=== PATIENT | female | born 1940 | race Hispanic/Latino ===

== ENCOUNTER 2020-02-06 05:11 | Day surgery (SDC) | payer MEDICARE ==
[2020-02-06] VITALS (9 sets, daily range): BP systolic 129–151; BP diastolic 44–118
[~2020-02-06] VITALS: Ht 147.3 cm; Wt 80.6 kg
[~2020-02-06 05:11] MED LIST: ACET650T9 PO; ASPI-556 PO; CARV3.12 PO; DORZ10DR19 OU; ERGO500014 PO; FISH1CAP27 PO; GLIP5TAB11 PO; HYDR25TA PO; ISOS30TA6 PO; LATA7.5D OU; METF750T46 PO; NIFE-39 PO; PANT40TA54 PO; PRAV40TA3 PO; TELM40TA8 PO; TRAM50TA4 PO
[2020-02-06 06:33] LABS: BASOPHILS % (AUTO) 0.2 % (0.0-5.0); EOSINOPHILS % (AUTO) 1.2 % (0.0-8.0); LYMPHOCYTES % (AUTO) 36.9 % (21.0-51.0); MEAN CORPUSCULAR HEMOGLOBIN 26.8 pg (27.0-33.0); MEAN CORPUSCULAR HGB CONC 31.7 g/dL (32.0-36.0); MEAN CORPUSCULAR VOLUME 84.5 fL (79-99); MONOCYTES % (AUTO) 8.2 % (3.0-13.0); NEUTROPHILS % (AUTO) 53.1 % (40.0-77.0); PLATELET COUNT (AUTO) 232 K/uL (130-400); RED BLOOD CELL COUNT(AUTO) 4.14 MIL/uL (4.00-5.50); RED CELL DISTRIBUTION WIDTH 13.8 % (11.0-15.5); WHITE BLOOD COUNT (AUTO) 8.2 K/uL (4.8-10.8)
[2020-02-06] MEDS ORDERED: METHYLPREDNISOLONE SOD SUCC 125MG/2ML VIAL ONE (06:38)
[2020-02-06] MEDS ORDERED: DiphenhydrAMINE HCL 50 MG/ML VIAL ONE (06:39)
[2020-02-06] MEDS ORDERED: SODIUM CHLORIDE 0.9% 1000ML 1,000 ML IV ONE (06:39)
[2020-02-06 06:43] LABS: CREATININE 1.6 mg/dL (0.5-1.5); INR 0.97 (0.85-1.15); PARTIAL THROMBOPLASTIN TIME 29.4 SEC (26.3-35.5); PROTHROMBIN TIME 10.5 SEC (9.6-11.6)
[2020-02-06 06:46] LABS: APPEARANCE,URINE Clear (CLEAR); BILIRUBIN,URINE Negative (NEGATIVE); COLOR,URINE Yellow (YELLOW); GLUCOSE, URINE (UA) Negative (NEGATIVE); KETONES,URINE Negative (NEGATIVE); LEUKOCYTE ESTERASE ,URINE Trace (NEGATIVE); NITRATE,URINE Negative (NEGATIVE); OCCULT BLOOD,URINE Negative (NEGATIVE); PROTEIN,URINE POS 1+ mg/dL (NEGATIVE); UROBILINOGEN,URINE 0.2 mg/dL (0.2-1.0)
[2020-02-06] MEDS ORDERED: SODIUM CHLORIDE 0.9% 500ML 500 ML IV SCH (07:00)
[2020-02-06 07:10] LABS: BACTERIA,URINE None Seen /HPF (None Seen); RBC,URINE 0-1 /HPF (0-1); WBC,URINE 0-1 /HPF (0-1)
[2020-02-06] MEDS ORDERED: HEPARIN SODIUM 1000UNIT/ML 10ML VIAL ONE (07:22)
[2020-02-06] MEDS ORDERED: IOHEXOL 350 MG/ML 100ML INFUS..BTL IV ONE (07:23)
[2020-02-06] MEDS ORDERED: IOHEXOL-350 50ML VIAL IV ONE (07:23)
[2020-02-06] MEDS ORDERED: MIDAZOLAM HCL 1 MG/ML 2ML VIAL ONE (07:23)
[2020-02-06] MEDS ORDERED: NITROGLYCERIN 2 MG/VIAL VIAL IV ONE (07:23)
[2020-02-06] MEDS ORDERED: FENTANYL CITRATE PF 50 MCG/1 ML 2ML VIAL ONE (07:23)
[2020-02-06] MEDS ORDERED: LIDOCAINE HCL 2% 20ML ONE (07:24)
[2020-02-06] MEDS ORDERED: SODIUM CHLORIDE 0.9% 1000ML 1,000 ML IV SCH (08:47)
[2020-02-06] MEDS ORDERED: DEXTROSE 50%-WATER 50 ML DISP.SYRIN IV PRN (09:00)
[2020-02-06] MEDS ORDERED: GLUCAGON 1MG KIT 1 MG ML IM PRN (09:00)
== END 2020-02-06 13:08 | disposition home or self-care (01) ==
LOC: DAH 05:11
PROVIDERS: ATTEND Internal Medicine Cardiovascular Disease
DX: R07.9 Chest pain, unspecified (principal); I25.10 Atherosclerotic heart disease of native coronary artery without angina pectoris; I12.9 Hypertensive chronic kidney disease with stage 1 through stage 4 chronic kidney disease, or unspecified chronic kidney disease; E11.22 Type 2 diabetes mellitus with diabetic chronic kidney disease; N18.3 Chronic kidney disease, stage 3 (moderate); E78.5 Hyperlipidemia, unspecified; R06.9 Unspecified abnormalities of breathing
CPT/HCPCS: 36415; 71045; 80048; 81001; 82948; 85025; 85610; 85730; 93005; 93458; A4215; A4216; A4221; A4222; A4223 ×3; A4606; A4663; C1760; C1769; C1894 ×2; J1200; J1644; J2250; J2930; J3010; J3490 ×2; J7030; Q9965; Q9967 ×2; 99156; 99157

== ENCOUNTER 2020-02-20 10:00 | Inpatient (IN) | payer OTHER, MEDICARE ==
[~2020-02-20] VITALS: Ht 152.4 cm; Wt 72.7 kg
[2020-02-20 12:21] LABS: BASOPHILS % (AUTO) 0.3 % (0.0-5.0); EOSINOPHILS % (AUTO) 1.4 % (0.0-8.0); LYMPHOCYTES % (AUTO) 29.9 % (21.0-51.0); MEAN CORPUSCULAR HEMOGLOBIN 27.6 pg (27.0-33.0); MEAN CORPUSCULAR HGB CONC 32.5 g/dL (32.0-36.0); MEAN CORPUSCULAR VOLUME 84.9 fL (79-99); MONOCYTES % (AUTO) 7.9 % (3.0-13.0); PLATELET COUNT (AUTO) 217 K/uL (130-400); RED BLOOD CELL COUNT(AUTO) 3.77 MIL/uL (4.00-5.50); RED CELL DISTRIBUTION WIDTH 13.8 % (11.0-15.5); WHITE BLOOD COUNT (AUTO) 8.9 K/uL (4.8-10.8)
[2020-02-20 12:31] LABS: CREATININE 1.5 mg/dL (0.5-1.5); POTASSIUM 4.1 mmol/L (3.5-5.1)
[2020-02-20 12:35] LABS: INR 0.94 (0.85-1.15); PARTIAL THROMBOPLASTIN TIME 29.3 SEC (26.3-35.5); PROTHROMBIN TIME 10.2 SEC (9.6-11.6)
[2020-02-20 12:40] LABS: HEMOGLOBIN A1C 7.1 % (4.0-6.0)
[2020-02-20 13:16] VITALS: BP 176/65
--- NOTE | 2020-02-21 10:47 | NUR ---
RE: ABNORMAL LABS\ REPORTED ABNORMAL LABS TO ANGIE WALKER RN (BUN 32, CREAT 1.5, HGB 10.4/CREAT 32) NO NEW ORDERS RECEIVED. MAY PROCEED WITH SURGERY.
[2020-02-21] MEDS ORDERED: METF-444 PO (14:03)
[2020-02-24] VITALS (62 sets, daily range): BP systolic 92–171; BP diastolic 45–68
[2020-02-24] MEDS: CEFUROXIME SODIUM 1.5 GM VIAL IVP SCH ×2 (06:00→08:00)
[2020-02-24] MEDS ORDERED: EPINEPHRINE 10 MG in SODIUM CHLORIDE 0.9% 240 ML IV PRN (06:15)
[2020-02-24] MEDS ORDERED: SODIUM CHLORIDE 0.9% 1000ML 1,000 ML IV ONE ×2 (06:15→10:07)
[2020-02-24] MEDS ORDERED: AMINOCAPROIC ACID 15,000 MG in SODIUM CHLORIDE 0.9% 500ML 420 ML IV PRN (06:15)
[2020-02-24] MEDS ORDERED: NOREPINEPHRINE BITARTRATE 8 MG in DEXTROSE 5%-WATER 250 ML IV PRN (06:15)
[2020-02-24] MEDS ORDERED: CEFAZOLIN SODIUM 1 GM VIAL ONE (06:54)
[2020-02-24] MEDS ORDERED: PAPAVERINE HCL 30 MG/ML 2ML VIAL ONE (06:55)
[2020-02-24] MEDS ORDERED: NITROGLYCERIN 50 MG/D5% WATER 1 BOT ONE (06:57)
--- NOTE | 2020-02-24 07:26 | NUR ---
potential for infection: clipped as per orders of dr. lilian alexandre per bayron kong, followed by wiping with que: 2% chlorhexidine gluconate cloth patients pre-op skin prep
[2020-02-24] MEDS ORDERED: AMINOCAPROIC ACID 250 MG/ML 20 ML VIAL IV ONE (07:42)
[2020-02-24] MEDS ORDERED: ESMOLOL HCL 10 MG/ML 10 ML VIAL ONE (07:42)
[2020-02-24] MEDS ORDERED: LIDOCAINE PF 2% 5ML ABBOJECT ONE (07:42)
[2020-02-24] MEDS ORDERED: EPINEPHRINE 1 MG/ML AMPULE ONE (07:42)
[2020-02-24] MEDS ORDERED: NOREPINEPHRINE BITARTRATE 1 MG/1 ML ML IV ONE (07:42)
[2020-02-24] MEDS ORDERED: HEPARIN SODIUM 1000UNIT/ML 10ML VIAL ONE ×2 (07:42→07:45)
[2020-02-24] MEDS ORDERED: PROTAMINE SULFATE 10 MG/ML 25ML VIAL IV ONE (07:42)
[2020-02-24] MEDS ORDERED: PROPOFOL 10 MG/ML 20ML VIAL IV ONE (07:43)
[2020-02-24] MEDS ORDERED: MIDAZOLAM HCL 1 MG/ML 2ML VIAL ONE (07:43)
[2020-02-24] MEDS ORDERED: FENTANYL CITRATE PF 50 MCG/1 ML 20ML VIAL IJ ONE (07:43)
[2020-02-24] MEDS ORDERED: ROCURONIUM 10MG/1ML SYR 10 MG/ML ML ONE (07:43)
[2020-02-24] MEDS ORDERED: KETAMINE 50MG/ML SYRINGE 50 MG/ML DISP.SYRIN IV ONE (07:45)
[2020-02-24] MEDS ORDERED: GLYCOPYRROLATE 1 MG/5 ML SYRINGE ONE (08:49)
[2020-02-24 09:01] LABS: ABG BASE EXCESS -5.1 mmol/L (-2.0-3.0); ABG HCO3 20.2 mmol/L (21.0-28.0); ABG OXYGEN SATURATION 98.8 % (95.0-99.0); ABG PCO2 39 mmHg (32-45)
[2020-02-24] MEDS ORDERED: SODIUM BICARB 50MEQ 50ML VIAL ONE (09:04)
[2020-02-24] MEDS ORDERED: SODIUM BICARB 8.4% 50ML SYRINGE ONE (09:04)
[2020-02-24] MEDS ORDERED: tylenol arthritis PO (09:27)
[2020-02-24] MEDS ORDERED: CEFD300C3 PO (09:27)
[2020-02-24] MEDS ORDERED: LORA10TA7 PO (09:27)
[2020-02-24] MEDS ORDERED: PRAV40TA3 PO (09:27)
[2020-02-24 09:47] LABS: ABG HCO3 22.9 mmol/L (21.0-28.0); ABG OXYGEN SATURATION 98.5 % (95.0-99.0); ABG PCO2 35 mmHg (32-45)
[2020-02-24] MEDS ORDERED: SODIUM CHLORIDE 0.9% 500ML 500 ML IV SCH (09:57)
[2020-02-24] MEDS ORDERED: ACETAMINOPHEN 650 MG SUPPOSITORY RC PRN (10:00)
[2020-02-24] MEDS ORDERED: SODIUM CHLORIDE 0.9% 10 ML VIAL IVP PRN (10:00)
[2020-02-24] MEDS ORDERED: ONDANSETRON HCL 4 MG/2 ML VIAL IV PRN (10:00)
[2020-02-24] MEDS ORDERED: PROPOFOL 1000 MG/100 ML 100 ML IV PRN (10:00)
[2020-02-24] MEDS ORDERED: NOREPINEPHRINE 4MG/NS 250ML 250 ML IV PRN (10:00)
[2020-02-24] MEDS ORDERED: MORPHINE SULFATE 2 MG/ML 1ML SYG IV PRN (10:00)
[2020-02-24] MEDS ORDERED: POTASSIUM PHOS 15 mMOL+NS250ML 250 ML IV PRN (10:00)
[2020-02-24] MEDS ORDERED: AMINOCAPROIC ACID 15,000 MG in SODIUM CHLORIDE 0.9% 250 ML IV SCH (10:00)
[2020-02-24] MEDS ORDERED: GLUCAGON 1MG KIT 1 MG ML IM PRN (10:00)
[2020-02-24] MEDS ORDERED: DEXTROSE 50%-WATER 50 ML DISP.SYRIN IV PRN (10:00)
[2020-02-24] MEDS ORDERED: ALBUMIN (HUMAN) 5% 250 ML IV PRN (10:00)
[2020-02-24] MEDS ORDERED: EPINEPHRINE 10 MG in DEXTROSE 5%-WATER 250 ML IV PRN (10:00)
[2020-02-24] MEDS ORDERED: MORPHINE SULFATE 4 MG/1ML SYG IV PRN (10:00)
[2020-02-24] MEDS ORDERED: ACETAMINOPHEN 325 MG TAB PO PRN (10:00)
[2020-02-24] MEDS ORDERED: SODIUM CHLORIDE 0.9% 1000ML 1,000 ML IV SCH (10:00)
[2020-02-24 10:48] LABS: ABG BASE EXCESS -2.9 mmol/L (-2.0-3.0); ABG HCO3 21.9 mmol/L (21.0-28.0); ABG OXYGEN SATURATION 97.7 % (95.0-99.0); ABG PCO2 38 mmHg (32-45)
[2020-02-24 10:51] LABS: HEMATOCRIT 25.7 % (36-48); MEAN CORPUSCULAR HEMOGLOBIN 27.9 pg (27.0-33.0); MEAN CORPUSCULAR HGB CONC 33.1 g/dL (32.0-36.0); MEAN CORPUSCULAR VOLUME 84.3 fL (79-99); RED BLOOD CELL COUNT(AUTO) 3.05 MIL/uL (4.00-5.50); RED CELL DISTRIBUTION WIDTH 13.9 % (11.0-15.5); WHITE BLOOD COUNT (AUTO) 11.3 K/uL (4.8-10.8)
[2020-02-24 11:04] LABS: INR 1.07 (0.85-1.15); PARTIAL THROMBOPLASTIN TIME 29.8 SEC (26.3-35.5); PROTHROMBIN TIME 11.5 SEC (9.6-11.6)
[2020-02-24 11:05] LABS: CREATININE 1.4 mg/dL (0.5-1.5); MAGNESIUM 1.5 mg/dL (1.80-2.40); PHOSPHORUS 4.3 mg/dL (2.5-4.9); POTASSIUM 3.8 mmol/L (3.5-5.1)
[2020-02-24] MEDS: SODIUM BICARB 50MEQ 50ML VIAL IV PRN ×3 (11:18→15:43)
[2020-02-24] MEDS: POTASSIUM CHLORIDE 20MEQ/100ML 100 ML IV PRN ×2 (11:19→13:55)
[2020-02-24] MEDS: INSULIN REGULAR, HUMAN 3ML 100 UNIT in SODIUM CHLORIDE 0.9% 99 ML IV SCH ×2 (11:20)
[2020-02-24 11:48] LABS: ABG BASE EXCESS 0.8 mmol/L (-2.0-3.0); ABG HCO3 24.9 mmol/L (21.0-28.0); ABG OXYGEN SATURATION 98.1 % (95.0-99.0); ABG PCO2 38 mmHg (32-45)
[2020-02-24] MEDS: MAGNESIUM 2GM PREMIX 50ML 50 ML IV PRN (11:48)
[2020-02-24] MEDS: CALCIUM GLUCONATE 1 GM in SODIUM CHLORIDE 0.9% 50 ML IV PRN (12:01)
[2020-02-24] MEDS: TRAMADOL HCL 50 MG TABLET PO PRN ×2 (13:46→20:10)
[2020-02-24 13:50] LABS: ABG BASE EXCESS -0.7 mmol/L (-2.0-3.0); ABG HCO3 21.1 mmol/L (21.0-28.0); ABG OXYGEN SATURATION 97.8 % (95.0-99.0); ABG PCO2 26 mmHg (32-45)
[2020-02-24] MEDS: DORZOLAMIDE HCL 2% 10ML DROPS OU SCH ×2 (13:50→20:22)
[2020-02-24] MEDS: NITROGLYCERIN 50 MG/D5% WATER 250 BOT IV SCH (14:47)
[2020-02-24] MEDS: CEFAZOLIN SODIUM 1 GM VIAL IV SCH ×2 (15:19→23:49)
[2020-02-24 15:34] LABS: ABG BASE EXCESS -1.4 mmol/L (-2.0-3.0); ABG HCO3 20.7 mmol/L (21.0-28.0); ABG OXYGEN SATURATION 98.1 % (95.0-99.0); ABG PCO2 26 mmHg (32-45)
--- NOTE | 2020-02-24 16:28 | NUR ---
TON PLAN VISITED WITH PATIENT. PATIENT SV CABG IN CVR VENTED. [facility] WILL CONTINUE TO FOLLOW. Addendum: 02/24/20 at 1629 by COMFORT SALAS RN CM Amended: Links added.
[2020-02-24] MEDS: ACETAMINOPHEN 325 MG TAB PO PRN ×2 (17:07→23:50)
[2020-02-24] MEDS: SIMVASTATIN 20 MG TABLET PO SCH (20:09)
[2020-02-24] MEDS: FAMOTIDINE/PF 20 MG/2 ML VIAL IV SCH (20:09)
[2020-02-24] MEDS: LATANOPROST 2.5 ML DROPS OU SCH (20:23)
[2020-02-24 22:16] LABS: MAGNESIUM 2.1 mg/dL (1.80-2.40)
[2020-02-25] VITALS (41 sets, daily range): BP systolic 112–180; BP diastolic 42–69
[2020-02-25] MEDS ORDERED: FENTANYL CITRATE PF 0.05 MG/ML 1,000 MCG in SODIUM CHLORIDE 0.9% 100 ML IVPB SCH (01:15)
[2020-02-25 05:09] LABS: HEMATOCRIT 25.8 % (36-48); MEAN CORPUSCULAR HEMOGLOBIN 27.5 pg (27.0-33.0); MEAN CORPUSCULAR HGB CONC 32.6 g/dL (32.0-36.0); MEAN CORPUSCULAR VOLUME 84.3 fL (79-99); RED BLOOD CELL COUNT(AUTO) 3.06 MIL/uL (4.00-5.50); RED CELL DISTRIBUTION WIDTH 14.5 % (11.0-15.5); WHITE BLOOD COUNT (AUTO) 10.7 K/uL (4.8-10.8)
[2020-02-25] MEDS: CALCIUM GLUCONATE 1 GM in SODIUM CHLORIDE 0.9% 50 ML IV PRN (05:23)
[2020-02-25] MEDS: CEFUROXIME SODIUM 1.5 GM VIAL IVP SCH (05:23)
[2020-02-25] MEDS ORDERED: CALCIUM GLUCONATE 1 GM/10 ML VIAL IV ONE (05:23)
[2020-02-25 05:33] LABS: ABG BASE EXCESS 0.3 mmol/L (-2.0-3.0); ABG HCO3 25.2 mmol/L (21.0-28.0); ABG OXYGEN SATURATION 97.3 % (95.0-99.0); ABG PCO2 42 mmHg (32-45)
[2020-02-25 05:34] LABS: PARTIAL THROMBOPLASTIN TIME 28.5 SEC (26.3-35.5); PROTHROMBIN TIME 10.8 SEC (9.6-11.6)
[2020-02-25 05:45] LABS: CREATININE 1.5 mg/dL (0.5-1.5); PHOSPHORUS 6.2 mg/dL (2.5-4.9); POTASSIUM 3.7 mmol/L (3.5-5.1)
[2020-02-25] MEDS ORDERED: CEFAZOLIN SODIUM 1 GM VIAL ONE (08:28)
[2020-02-25] MEDS: POTASSIUM CHLORIDE 20MEQ/100ML 100 ML IV PRN (08:43)
[2020-02-25] MEDS: CEFAZOLIN SODIUM 1 GM VIAL IV SCH (08:43)
[2020-02-25] MEDS: FUROSEMIDE 10 MG/ML 2ML VIAL IV SCH ×2 (08:44→19:52)
[2020-02-25] MEDS: FAMOTIDINE/PF 20 MG/2 ML VIAL IV SCH ×2 (08:44→19:52)
[2020-02-25] MEDS: DORZOLAMIDE HCL 2% 10ML DROPS OU SCH ×3 (08:45→19:54)
[2020-02-25] MEDS: LORATADINE 10 MG TABLET PO SCH (08:45)
[2020-02-25] MEDS: ASPIRIN 325MG EC TAB 325 MG TABLET.DR PO SCH (08:46)
[2020-02-25] MEDS: TRAMADOL HCL 50 MG TABLET PO PRN ×2 (08:46→22:32)
[2020-02-25] MEDS: ACETAMINOPHEN 325 MG TAB PO PRN (12:57)
--- NOTE | 2020-02-25 15:05 | NUR ---
TON ORTIZ VISITED WITH PATIENT. SAID SHE JUST GOT TWO PAIN PILLS AND MAKING HER TIRED. SHE ONLY TAKES ONE AT HOME. SAID WANTS TO GO TO [facility]. TOLD HER WE WILL LET KNOW AND SEE WHAT HE ORDERS. Addendum: 02/25/20 at 1506 by COMFORT SALAS RN CM Amended: Links added.
[2020-02-25] MEDS: NITROGLYCERIN 50 MG/D5% WATER 250 BOT IV SCH (16:39)
[2020-02-25] MEDS: INSULIN REGULAR, HUMAN 3ML 100 UNIT in SODIUM CHLORIDE 0.9% 99 ML IV SCH ×2 (18:59)
[2020-02-25] MEDS: SIMVASTATIN 20 MG TABLET PO SCH (19:52)
[2020-02-25] MEDS: LATANOPROST 2.5 ML DROPS OU SCH (19:54)
[2020-02-26] VITALS (17 sets, daily range): BP systolic 118–180; BP diastolic 36–86
[2020-02-26 00:50] LABS: MAGNESIUM 1.5 mg/dL (1.80-2.40); POTASSIUM 3.7 mmol/L (3.5-5.1)
[2020-02-26] MEDS: MAGNESIUM 2GM PREMIX 50ML 50 ML IV PRN (01:05)
[2020-02-26] MEDS ORDERED: CALCIUM GLUCONATE 1 GM/10 ML VIAL IV ONE (03:21)
[2020-02-26] MEDS ORDERED: SODIUM CHLORIDE 0.9% 100 ML IV ONE (03:27)
[2020-02-26] MEDS: POTASSIUM CHLORIDE 20MEQ/100ML 100 ML IV PRN (04:14)
[2020-02-26 06:50] LABS: HEMATOCRIT 24.7 % (36-48); MEAN CORPUSCULAR HEMOGLOBIN 27.2 pg (27.0-33.0); MEAN CORPUSCULAR VOLUME 85.2 fL (79-99); RED BLOOD CELL COUNT(AUTO) 2.9 MIL/uL (4.00-5.50); RED CELL DISTRIBUTION WIDTH 14.7 % (11.0-15.5); WHITE BLOOD COUNT (AUTO) 10.7 K/uL (4.8-10.8)
[2020-02-26 07:02] LABS: CREATININE 1.4 mg/dL (0.5-1.5); POTASSIUM 4.2 mmol/L (3.5-5.1)
[2020-02-26] MEDS: FAMOTIDINE/PF 20 MG/2 ML VIAL IV SCH (08:45)
[2020-02-26] MEDS: TRAMADOL HCL 50 MG TABLET PO PRN (08:45)
[2020-02-26] MEDS: FUROSEMIDE 20 MG TABLET PO SCH ×2 (08:46→16:03)
[2020-02-26] MEDS: LORATADINE 10 MG TABLET PO SCH (08:46)
[2020-02-26] MEDS: ASPIRIN 325MG EC TAB 325 MG TABLET.DR PO SCH (08:46)
[2020-02-26] MEDS: CARVEDILOL 3.125 MG TABLET PO SCH ×2 (08:47→19:40)
[2020-02-26] MEDS: LOSARTAN 50 MG TABLET PO SCH (08:47)
[2020-02-26] MEDS: DORZOLAMIDE HCL 2% 10ML DROPS OU SCH ×3 (08:49→19:43)
[2020-02-26] MEDS: FUROSEMIDE 10 MG/ML 2ML VIAL IV SCH (08:50)
--- NOTE | 2020-02-26 14:40 | NUR ---
PT WAS TRANSFERRED TO ROOM 404 VIA CARDIAC CHAIR AFTER REPORT WAS GIVEN TO CINDY BRITTON. PT IN NO APPARENT DISTRESS AND WILL ADVISE FAMILY MEMBER OF PT'S ROOM NUMBER.
--- NOTE | 2020-02-26 14:45 | NUR ---
ARRIVAL TO ROOM 404 PT IS AAOX3 DENIES CP DENIES SOB DENIES NV NO COMPLAINTS. CALL LIGHT WITHIN REACH.
[2020-02-26] MEDS: SIMVASTATIN 20 MG TABLET PO SCH (19:41)
[2020-02-26] MEDS: FAMOTIDINE 20MG TAB 20 MG TAB PO SCH (19:41)
[2020-02-26] MEDS: ACETAMINOPHEN 325 MG TAB PO PRN (19:41)
[2020-02-26] MEDS: LATANOPROST 2.5 ML DROPS OU SCH (19:44)
[2020-02-27] MEDS: TRAMADOL HCL 50 MG TABLET PO PRN ×2 (00:41→14:18)
[2020-02-27 04:26] LABS: HEMATOCRIT 27.1 % (36-48); MEAN CORPUSCULAR HEMOGLOBIN 27.4 pg (27.0-33.0); MEAN CORPUSCULAR HGB CONC 31.7 g/dL (32.0-36.0); MEAN CORPUSCULAR VOLUME 86.3 fL (79-99); RED BLOOD CELL COUNT(AUTO) 3.14 MIL/uL (4.00-5.50); RED CELL DISTRIBUTION WIDTH 14.2 % (11.0-15.5); WHITE BLOOD COUNT (AUTO) 11.9 K/uL (4.8-10.8)
[2020-02-27 04:32] VITALS: BP 146/60
[2020-02-27 04:41] LABS: CREATININE 1.6 mg/dL (0.5-1.5); POTASSIUM 4.2 mmol/L (3.5-5.1)
[2020-02-27] MEDS: GLIPIZIDE 5 MG TABLET PO SCH (06:33)
[2020-02-27] MEDS: METFORMIN HCL 500 MG TAB.SR.24H PO SCH (07:27)
[2020-02-27] MEDS: FAMOTIDINE 20MG TAB 20 MG TAB PO SCH ×2 (07:28→19:32)
[2020-02-27] MEDS: LOSARTAN 50 MG TABLET PO SCH (07:28)
[2020-02-27] MEDS: ASPIRIN 325MG EC TAB 325 MG TABLET.DR PO SCH (07:28)
[2020-02-27] MEDS: FUROSEMIDE 20 MG TABLET PO SCH ×2 (07:28→16:35)
[2020-02-27] MEDS: CARVEDILOL 3.125 MG TABLET PO SCH ×2 (07:28→19:34)
[2020-02-27] MEDS: DORZOLAMIDE HCL 2% 10ML DROPS OU SCH ×3 (07:29→19:34)
[2020-02-27] MEDS: ENOXAPARIN SODIUM 30 MG/0.3 ML SQ SCH (07:29)
[2020-02-27] MEDS: LORATADINE 10 MG TABLET PO SCH (07:29)
--- NOTE | 2020-02-27 08:00 | NUR ---
ASSESSMENT PT IS AAOX3 DENIES CP DENIES SOB DENIES NV NO COMPLAINTS RESTING IN BED, ASSISTED TO CHAIR. STERNAL INCISION IS CLEAN DRY AND INTACT. ENCOUARGED COUGH AND DEEP BREATHING WITH HEART PILLOW SPLINTING ENCOURAGED USE OF IS 10XS Q1HR WHILE AWAKE. CALL LIGHT WITHIN REACH.
[2020-02-27 08:28] VITALS: BP 140/60
--- NOTE | 2020-02-27 09:58 | NUR ---
DC PLAN VISITED WITH PATIENT. PATIENT LIVES WITH SPOUSE. INDEPENDENT ABLE TO PERFORM ADL'S. AVAILABLE [facility]. PROVIDER NOT SURE ON HOW MANY HOURS. PATIENT REQUEST [facility] FOR THERAPY SHE WENT FOR HER KNEES. PATIENT ALSO WOULD LIKE A WHEEL CHAIR AND HOSPITAL BED. EXPLAINED THAT SURGEON TYPICALLY WANTS PATIENT AMBULATING AND DOES NOT ORDER WHEEL CHAIRS. MIGHT NEED TO GO TO PRIMARY FOR DME. EXPRESSED THAT HER PRIMARY TOLD HER TO ASK SURGEON FOR IT. LET NURSE KNOW OF REQUEST. LET [facility] THAT NOW HAS CASE OF REQUEST WELL. JULIO CESAR SIGNED FOR [facility]. Addendum: 02/27/20 at 1006 by COMFORT SALAS RN Amended: Links added.
[2020-02-27 10:52] VITALS: BP 122/57
[2020-02-27 16:00] VITALS: BP 143/58
--- NOTE | 2020-02-27 16:23 | NUR ---
CM NOTE/[facility] JULIO CESAR COMPLETED PRIOR. NEW ORDER FOR [facility] HOSPITAL. CLINICAL PACKET FAXED TO [facility], SPOKE WITH ARMANDO, WILL GET STARTED ON PACKET. PENDING AUTHORIZATION, [facility] TO FOLLOW UP.
[2020-02-27 19:00] VITALS: BP 152/61
[2020-02-27] MEDS ORDERED: DOCUSATE SODIUM 100 MG CAP PO ONE (19:21)
[2020-02-27] MEDS ORDERED: SENNOSIDES 8.6 MG TABLET ONE (19:22)
[2020-02-27] MEDS: SIMVASTATIN 20 MG TABLET PO SCH (19:32)
[2020-02-27] MEDS: ACETAMINOPHEN 325 MG TAB PO PRN (19:33)
[2020-02-27] MEDS: LATANOPROST 2.5 ML DROPS OU SCH (19:34)
[2020-02-27 23:00] VITALS: BP 146/64
[2020-02-28 03:00] VITALS: BP 158/71
[2020-02-28 03:45] LABS: HEMATOCRIT 26.6 % (36-48); MEAN CORPUSCULAR HEMOGLOBIN 27.4 pg (27.0-33.0); MEAN CORPUSCULAR HGB CONC 32.3 g/dL (32.0-36.0); MEAN CORPUSCULAR VOLUME 84.7 fL (79-99); NUCLEATED RED BLOOD CELLS 0.2 % (0.0-0.19); RED BLOOD CELL COUNT(AUTO) 3.14 MIL/uL (4.00-5.50); RED CELL DISTRIBUTION WIDTH 13.9 % (11.0-15.5); WHITE BLOOD COUNT (AUTO) 10.3 K/uL (4.8-10.8)
[2020-02-28] MEDS: TRAMADOL HCL 50 MG TABLET PO PRN ×2 (04:00→16:31)
[2020-02-28 04:03] LABS: CREATININE 1.8 mg/dL (0.5-1.5)
[2020-02-28] MEDS: GLIPIZIDE 5 MG TABLET PO SCH (06:52)
[2020-02-28] MEDS: ASPIRIN 325MG EC TAB 325 MG TABLET.DR PO SCH (08:13)
[2020-02-28] MEDS: FAMOTIDINE 20MG TAB 20 MG TAB PO SCH ×2 (08:13→20:22)
[2020-02-28] MEDS: FUROSEMIDE 20 MG TABLET PO SCH ×2 (08:14→16:30)
[2020-02-28] MEDS: METFORMIN HCL 500 MG TAB.SR.24H PO SCH (08:14)
[2020-02-28] MEDS: LOSARTAN 50 MG TABLET PO SCH (08:14)
[2020-02-28] MEDS: LORATADINE 10 MG TABLET PO SCH (08:14)
[2020-02-28] MEDS: CARVEDILOL 3.125 MG TABLET PO SCH ×2 (08:14→20:22)
[2020-02-28] MEDS: ENOXAPARIN SODIUM 30 MG/0.3 ML SQ SCH (08:15)
--- NOTE | 2020-02-28 08:15 | NUR ---
GIVEN SCHEDULED MEDICATIONS. STATES UNKNOWN DATE OF LAST BOWEL MOVEMENT. WAS GIVEN COLACE AND SENNA LAST NIGHT--NO RESULTS. GIVEN WARM PRUNE JUICE AT THIS TIME. STATES HAS HAD PROBLEMS WITH CONSTIPATION EVERY TIME SHE HAS HAD SURGERY IN THE PAST. WILL CONTINUE TO MONITOR.
[2020-02-28] MEDS: DORZOLAMIDE HCL 2% 10ML DROPS OU SCH ×3 (08:16→20:23)
[2020-02-28 08:31] VITALS: BP 145/74
--- NOTE | 2020-02-28 11:41 | NUR ---
NO RESULTS FROM 1ST PRUNE JUICE..REQUESTING ADDITIONAL PRUNE JUICE...GIVEN.
[2020-02-28 11:53] VITALS: BP 119/51
--- NOTE | 2020-02-28 14:20 | NUR ---
DR. MURILLO ROUNDED , DISMISSAL ONCE ACCEPTED TO [facility].
[2020-02-28 17:49] VITALS: BP 159/63
[2020-02-28 20:00] VITALS: BP 156/62
[2020-02-28] MEDS: SIMVASTATIN 20 MG TABLET PO SCH (20:22)
[2020-02-28] MEDS: LATANOPROST 2.5 ML DROPS OU SCH (20:23)
[2020-02-29] VITALS (7 sets, daily range): BP systolic 130–166; BP diastolic 57–70
[2020-02-29] MEDS: GLIPIZIDE 5 MG TABLET PO SCH (06:32)
[2020-02-29] MEDS: FAMOTIDINE 20MG TAB 20 MG TAB PO SCH ×2 (08:33→21:18)
[2020-02-29] MEDS: LOSARTAN 50 MG TABLET PO SCH (08:33)
[2020-02-29] MEDS: CARVEDILOL 3.125 MG TABLET PO SCH ×2 (08:34→21:19)
[2020-02-29] MEDS: ASPIRIN 325MG EC TAB 325 MG TABLET.DR PO SCH (08:34)
[2020-02-29] MEDS: METFORMIN HCL 500 MG TAB.SR.24H PO SCH (08:35)
[2020-02-29] MEDS: LORATADINE 10 MG TABLET PO SCH (08:35)
[2020-02-29] MEDS: FUROSEMIDE 20 MG TABLET PO SCH (08:35)
[2020-02-29] MEDS: DORZOLAMIDE HCL 2% 10ML DROPS OU SCH ×3 (08:36→21:22)
[2020-02-29] MEDS: ACETAMINOPHEN 325 MG TAB PO PRN (08:36)
[2020-02-29] MEDS: ENOXAPARIN SODIUM 30 MG/0.3 ML SQ SCH (08:38)
[2020-02-29] MEDS: TRAMADOL HCL 50 MG TABLET PO PRN ×2 (11:24→22:38)
[2020-02-29] MEDS: SIMVASTATIN 20 MG TABLET PO SCH (21:18)
[2020-02-29] MEDS: LATANOPROST 2.5 ML DROPS OU SCH (21:22)
[2020-03-01 04:00] VITALS: BP_SYST 149; BP_SYST 164; BP_DIAS 67; BP_DIAS 68
[2020-03-01] MEDS: GLIPIZIDE 5 MG TABLET PO SCH (06:33)
[2020-03-01 07:00] VITALS: BP 144/63
[2020-03-01] MEDS: LOSARTAN 50 MG TABLET PO SCH (08:38)
[2020-03-01] MEDS: ASPIRIN 325MG EC TAB 325 MG TABLET.DR PO SCH (08:43)
[2020-03-01] MEDS: LORATADINE 10 MG TABLET PO SCH (08:43)
[2020-03-01] MEDS: TRAMADOL HCL 50 MG TABLET PO PRN (08:44)
[2020-03-01] MEDS: CARVEDILOL 3.125 MG TABLET PO SCH ×2 (08:45→20:45)
[2020-03-01] MEDS: ENOXAPARIN SODIUM 30 MG/0.3 ML SQ SCH (08:45)
[2020-03-01] MEDS: METFORMIN HCL 500 MG TAB.SR.24H PO SCH (08:47)
[2020-03-01] MEDS: DORZOLAMIDE HCL 2% 10ML DROPS OU SCH ×3 (08:51→20:45)
[2020-03-01] MEDS: FAMOTIDINE 20MG TAB 20 MG TAB PO SCH ×2 (08:52→20:45)
[2020-03-01] MEDS: FUROSEMIDE 20 MG TABLET PO SCH (08:52)
[2020-03-01 11:00] VITALS: BP 164/67
--- NOTE | 2020-03-01 11:47 | NUR ---
WR: Call placed to John KHALIL. He mentions that ins auth is still pending @ this time. Mentions that he will f/u w ins in am. Clinical update faxed to John KHALIL. CM to f/u in am regarding ins auth.
[2020-03-01 13:53] LABS: HEMATOCRIT 25.2 % (36-48); MEAN CORPUSCULAR HEMOGLOBIN 26.8 pg (27.0-33.0); MEAN CORPUSCULAR HGB CONC 31.7 g/dL (32.0-36.0); MEAN CORPUSCULAR VOLUME 84.3 fL (79-99); NUCLEATED RED BLOOD CELLS 0.3 % (0.0-0.19); RED BLOOD CELL COUNT(AUTO) 2.99 MIL/uL (4.00-5.50); RED CELL DISTRIBUTION WIDTH 13.5 % (11.0-15.5); WHITE BLOOD COUNT (AUTO) 7.8 K/uL (4.8-10.8)
[2020-03-01 14:00] LABS: CREATININE 1.6 mg/dL (0.5-1.5); POTASSIUM 4.4 mmol/L (3.5-5.1)
[2020-03-01 15:00] VITALS: BP 148/53
[2020-03-01] MEDS: ACETAMINOPHEN 325 MG TAB PO PRN (18:34)
[2020-03-01 19:49] VITALS: BP 147/53
[2020-03-01] MEDS: LATANOPROST 2.5 ML DROPS OU SCH (20:45)
[2020-03-01] MEDS: SIMVASTATIN 20 MG TABLET PO SCH (20:45)
[2020-03-01 23:33] VITALS: BP 139/61
[2020-03-02 05:08] VITALS: BP 159/57
[2020-03-02] MEDS: GLIPIZIDE 5 MG TABLET PO SCH ×2 (06:16→08:32)
--- NOTE | 2020-03-02 06:48 | NUR ---
PATIENT ALERT AND ORIENTED. SITTING UP IN CHAIR. DENIES SOB. DOES HAVE MILD PAIN TO MIDSTERNAL SITE WITH MOVEMENT. INCISION CHUCK. NO S/S OF INFECTION. INCENTIVE SPIROMETER USED, REACHED 750. CALL LIGHT WITHIN REACH.
--- NOTE | 2020-03-02 08:00 | NUR ---
DR. KENNEDY IN TO SEE PT.FROM HIS STANDPOINT PT. CAN BE TRANSFERRED TO [facility]. WHEN ARRANGEMENTS COMPLETE
[2020-03-02 08:07] VITALS: BP 147/60
[2020-03-02] MEDS: FAMOTIDINE 20MG TAB 20 MG TAB PO SCH ×2 (08:30→21:05)
[2020-03-02] MEDS: CARVEDILOL 3.125 MG TABLET PO SCH ×2 (08:31→21:05)
[2020-03-02] MEDS: METFORMIN HCL 500 MG TAB.SR.24H PO SCH (08:32)
[2020-03-02] MEDS: FUROSEMIDE 20 MG TABLET PO SCH (08:33)
[2020-03-02] MEDS: LOSARTAN 50 MG TABLET PO SCH (08:34)
[2020-03-02] MEDS: ASPIRIN 325MG EC TAB 325 MG TABLET.DR PO SCH (08:34)
[2020-03-02] MEDS: ENOXAPARIN SODIUM 30 MG/0.3 ML SQ SCH (08:36)
[2020-03-02 11:55] VITALS: BP 144/76
--- NOTE | 2020-03-02 15:51 | NUR ---
[facility] [employer] CALLED SAID PATIENT NOT IN NETWORK WITH [facility] NEED TO GO TO [facility]. SPOKE TO PATIENT SAID NOT THEY ARE TO FAR. WANTS SOMETHING IN [place]. SAID TO CALL DAUGHTER. SPOKE TO ARMANDO CONTRERAS SAID ON MONDAY THEY HAD BEEN TOLD THEY WERE IN NETWORK AND TODAY THEY SAID NO. CALLED DAUGHTER PHONE LINES NOT WORKING. TRIED [place], SEPARATE NUMBER, PRIVATE CELL NOT ABLE TO CONNECT. SPOKE TO PATIENT EXPLAINED ISSUE. I SHOWED PICTURES OF THE DIFFERENT FACILITIES IN [place]. SAID OKAY TO ANY BUT [facility]. REFERRAL SENT TO [facility] AND [facility] SINCE NOT SURE WHICH ONE IS IN NETWORK. CM WILL CONTINUE TO FOLLOW. Addendum: 03/02/20 at 1557 by COMFORT SALAS RN CM Amended: Links added.
[2020-03-02 16:48] VITALS: BP 162/67
[2020-03-02] MEDS: LORATADINE 10 MG TABLET PO SCH (17:26)
[2020-03-02] MEDS: DORZOLAMIDE HCL 2% 10ML DROPS OU SCH ×2 (17:28→21:06)
[2020-03-02 19:00] VITALS: BP 190/74
[2020-03-02 21:02] VITALS: BP 154/55
[2020-03-02] MEDS: SIMVASTATIN 20 MG TABLET PO SCH (21:05)
[2020-03-02] MEDS: LATANOPROST 2.5 ML DROPS OU SCH (21:05)
[2020-03-02] MEDS: TRAMADOL HCL 50 MG TABLET PO PRN (21:06)
[2020-03-03] VITALS: BP 154/65
[2020-03-03 04:00] VITALS: BP 154/62
[2020-03-03] MEDS: METFORMIN HCL 500 MG TAB.SR.24H PO SCH (08:00)
[2020-03-03] MEDS: LORATADINE 10 MG TABLET PO SCH (08:05)
[2020-03-03] MEDS: LOSARTAN 50 MG TABLET PO SCH (08:05)
[2020-03-03] MEDS: FUROSEMIDE 20 MG TABLET PO SCH (08:06)
[2020-03-03] MEDS: CARVEDILOL 3.125 MG TABLET PO SCH ×2 (08:06→19:44)
[2020-03-03] MEDS: FAMOTIDINE 20MG TAB 20 MG TAB PO SCH ×2 (08:06→19:44)
[2020-03-03] MEDS: ASPIRIN 325MG EC TAB 325 MG TABLET.DR PO SCH (08:06)
[2020-03-03] MEDS: ENOXAPARIN SODIUM 30 MG/0.3 ML SQ SCH (08:07)
[2020-03-03] MEDS: DORZOLAMIDE HCL 2% 10ML DROPS OU SCH ×3 (08:09→19:45)
[2020-03-03 08:30] VITALS: BP 154/54
[2020-03-03 12:19] VITALS: BP 143/63
--- NOTE | 2020-03-03 12:19 | NUR ---
CM Note: [facility] pending approval and acceptance PT signed JULIO CESAR for any SNF in [place]. Faxed order, clinicals, PT, Covid Assessment to [facility], confirmation received. Spoke to Lottie, aware pt has denial for [facility] as it is not in network per [employer], aware pt request [place] facility only for rehab. Made aware pending PASRR and Covid rapid result, last covid result was done 02/19, facility requires within 72hrs test, will send result and pasrr as soon as available. Aware dcp once approved. EMS filled out in case needed, pending to be faxed w/current date. Pt pending approval and acceptance. Primary nurse aware. CM to cont to follow up.
--- NOTE | 2020-03-03 15:18 | NUR ---
RDSCREEN - LOS X 8 DAYS Pt is s/p CABG x1 week. Pt with [facility], CVR, NCS, Chopped diet order in place. No report of GI distress. Decreased appetite x2 days. Pending SNF placement. Recommend 60mL ProMod QD Recommend continue diet order. RD to continue to monitor. Addendum: 03/03/20 at [address] Amended: Links added.
[2020-03-03] MEDS: TRAMADOL HCL 50 MG TABLET PO PRN (15:26)
[2020-03-03 16:30] VITALS: BP 155/59
--- NOTE | 2020-03-03 18:00 | NUR ---
BURT VIRUS , DONE, FOR RDR. ORDERS
[2020-03-03] MEDS: SIMVASTATIN 20 MG TABLET PO SCH (19:44)
[2020-03-03] MEDS: LATANOPROST 2.5 ML DROPS OU SCH (19:46)
[2020-03-03 20:12] VITALS: BP 159/65
[2020-03-04 00:16] VITALS: BP 168/49
[2020-03-04] MEDS: TRAMADOL HCL 50 MG TABLET PO PRN (01:08)
[2020-03-04 04:20] VITALS: BP 179/48
[2020-03-04] MEDS: GLIPIZIDE 5 MG TABLET PO SCH (06:19)
[2020-03-04 08:28] VITALS: BP 174/59
[2020-03-04] MEDS: FAMOTIDINE 20MG TAB 20 MG TAB PO SCH (08:28)
[2020-03-04] MEDS: FUROSEMIDE 20 MG TABLET PO SCH (08:28)
[2020-03-04] MEDS: ASPIRIN 325MG EC TAB 325 MG TABLET.DR PO SCH (08:28)
[2020-03-04] MEDS: LOSARTAN 50 MG TABLET PO SCH (08:28)
[2020-03-04] MEDS: METFORMIN HCL 500 MG TAB.SR.24H PO SCH (08:28)
[2020-03-04] MEDS: LORATADINE 10 MG TABLET PO SCH (08:28)
[2020-03-04] MEDS: CARVEDILOL 3.125 MG TABLET PO SCH (08:29)
[2020-03-04] MEDS: ENOXAPARIN SODIUM 30 MG/0.3 ML SQ SCH (08:30)
[2020-03-04] MEDS: DORZOLAMIDE HCL 2% 10ML DROPS OU SCH ×2 (08:31→14:42)
--- NOTE | 2020-03-04 10:00 | NUR ---
CM Note: [facility]NR approval Received auth from ins to [facility] Auth#: [id number]. CM spoke to Lottie mixon/EKATERINA, confirmed approval. Pt safe to transfer via [facility] transport van once ready to [place]. Lottie aware, will have transport van available for pt today. Primary nurse aware. CM to continue to follow up.
[2020-03-04 11:30] VITALS: BP 163/74
--- NOTE | 2020-03-04 14:48 | NUR ---
DR. Nicole WOLFE IN ROOM SPEAKING WITH PT.
--- NOTE | 2020-03-04 16:05 | NUR ---
HL REMOVED, CATHETER INTACT. DISCHARGE INSTRUCTIONS GIVEN, VERBALIZED UNDERSTANDING.
--- NOTE | 2020-03-04 16:15 | NUR ---
ATTEMPTED TO CALL REPORT TO [facility], NURSE GATITO IS BUSY AT PRESENT TIME AND WILL CALL BACK FOR REPORT. TELEPHONE NUMBER PROVIDED.
--- NOTE | 2020-03-04 16:25 | NUR ---
RECEIVED CALL FROM GATITO MCRAE LVN. REPORT GIVEN AND TRANSPORT REQUESTED.
== END 2020-03-04 18:14 | DRG 235 ==
LOC: EDSTATUS 10:00 → DAHIP 02-24 05:41 → 2CV 02-24 10:21 → 4AH 02-26 14:46
PROVIDERS: ADMIT Thoracic Surgery (Cardiothoracic Vascular Surgery); ATTEND Thoracic Surgery (Cardiothoracic Vascular Surgery)
PROC: 06BQ4ZZ Excision of Left Saphenous Vein, Percutaneous Endoscopic Approach (ICD-10-PCS; 2020-02-24)
PROC: 06BP4ZZ Excision of Right Saphenous Vein, Percutaneous Endoscopic Approach (ICD-10-PCS; 2020-02-24)
PROC: 02100Z9 Bypass Coronary Artery, One Artery from Left Internal Mammary, Open Approach (ICD-10-PCS; principal; 2020-02-24 07:45)
PROC: 021009W Bypass Coronary Artery, One Artery from Aorta with Autologous Venous Tissue, Open Approach (ICD-10-PCS; 2020-02-24 07:45)
DX: I25.10 Atherosclerotic heart disease of native coronary artery without angina pectoris (principal); I50.33 Acute on chronic diastolic (congestive) heart failure; I13.0 Hypertensive heart and chronic kidney disease with heart failure and stage 1 through stage 4 chronic kidney disease, or unspecified chronic kidney disease; E11.22 Type 2 diabetes mellitus with diabetic chronic kidney disease; N18.3 Chronic kidney disease, stage 3 (moderate); Z20.828 Contact with and (suspected) exposure to other viral communicable diseases; E78.00 Pure hypercholesterolemia, unspecified; E78.5 Hyperlipidemia, unspecified; E87.70 Fluid overload, unspecified; E66.01 Morbid (severe) obesity due to excess calories; Z79.82 Long term (current) use of aspirin; Z79.899 Other long term (current) drug therapy; Z91.041 Radiographic dye allergy status; Z68.31 Body mass index [BMI] 31.0-31.9, adult
CPT/HCPCS: 36415; 71045; 71046; 80048; 82330; 82435; 82803; 82947; 82948; 83036; 83605; 83735; 84100; 84132; 84295; 85018; 85025; 85027; 85610; 85730; 86850; 86900; 86901; 86922; 87486; 87581; 87633; 87635; 87798; 93005; 93880; 94002; 94010; 94150; 97039; A4357; A7048; G0378; J0171; J0610; J0690; J0697; J1644; J1650; J1815; J1940; J2001; J2250; J2270; J2405; J2440; J2704; J2720; J3010; J3475; J3480; J3490; J7030; J7040

== ENCOUNTER 2020-03-18 21:10 | Emergency (ER) | payer MEDICARE | END 2020-03-18 22:38 | disposition home or self-care (01) | LOC: EDH 21:10 | DX: T81.31XA Disruption of external operation (surgical) wound, not elsewhere classified, initial encounter (principal); E11.9 Type 2 diabetes mellitus without complications; I10 Essential (primary) hypertension; I25.10 Atherosclerotic heart disease of native coronary artery without angina pectoris; Z98.890 Other specified postprocedural states; Z95.818 Presence of other cardiac implants and grafts; Y83.8 Other surgical procedures as the cause of abnormal reaction of the patient, or of later complication, without mention of misadventure at the time of the procedure; Y92.89 Other specified places as the place of occurrence of the external cause ==

== ENCOUNTER 2021-02-16 07:35 | Day surgery (SDC) | payer MEDICARE ==
[2021-02-16] VITALS (17 sets, daily range): BP systolic 153–170; BP diastolic 51–64
[~2021-02-16] VITALS: Ht 152.4 cm; Wt 80.3 kg
[~2021-02-16 07:35] MED LIST changes: -ACET650T9 PO; +DORZ10DR19 OP; -DORZ10DR19 OU; -ERGO500014 PO; -FISH1CAP27 PO; +FURO20TA4 PO; -HYDR25TA PO; -ISOS30TA6 PO; +LINA5TAB PO; +LORA10TA7 PO; -METF750T46 PO; +MULT-1330 PO; +PANT20TA18 PO; -PANT40TA54 PO; +PYRI100T10 PO; +SODIUM CHLORIDE 0.9% 1000ML 1,000 ML IV ONE; -TRAM50TA4 PO
[2021-02-16] MEDS ORDERED: IOHEXOL-350 50ML VIAL IV ONE (08:42)
[2021-02-16] MEDS ORDERED: SUCCINYLCHOLINE CHLORIDE 20 MG/ML 10 ML VIAL ONE (10:21)
[2021-02-16] MEDS ORDERED: PROPOFOL 10 MG/ML 20ML VIAL IV ONE (10:22)
[2021-02-16] MEDS ORDERED: SUCCINYLCHOLINE 200MG/10ML SYR ONE (10:25)
[2021-02-16] MEDS ORDERED: INDOMETHACIN 50 MG SUPP.RECT RC SCH (10:45)
== END 2021-02-16 13:10 | disposition home or self-care (01) ==
LOC: ENDO 07:35 → DAH 07:35 → ENDO 13:10
PROVIDERS: ATTEND Internal Medicine Gastroenterology
DX: Z46.59 Encounter for fitting and adjustment of other gastrointestinal appliance and device (principal); K80.51 Calculus of bile duct without cholangitis or cholecystitis with obstruction; Z20.822 Contact with and (suspected) exposure to COVID-19; I10 Essential (primary) hypertension; I25.10 Atherosclerotic heart disease of native coronary artery without angina pectoris; E11.9 Type 2 diabetes mellitus without complications; M19.90 Unspecified osteoarthritis, unspecified site; E78.2 Mixed hyperlipidemia; Z79.82 Long term (current) use of aspirin; Z79.84 Long term (current) use of oral hypoglycemic drugs; Z79.899 Other long term (current) drug therapy; Z95.1 Presence of aortocoronary bypass graft; Z88.3 Allergy status to other anti-infective agents; Z90.49 Acquired absence of other specified parts of digestive tract
CPT/HCPCS: 43265; 43273; 43275; 74328; 82948 ×2; 93005; A4215; A4221; A4222; A4223; A4657 ×2; A4663; C1769 ×2; C1773; C9803; J0330 ×2; J2704; J7030; Q9967; U0003; 74330

== ENCOUNTER 2021-02-24 16:24 | Emergency (ER) | payer MEDICARE ==
[~2021-02-24] VITALS: Ht 152.4 cm; Wt 80.3 kg
[~2021-02-24 16:24] MED LIST changes: -SODIUM CHLORIDE 0.9% 1000ML 1,000 ML IV ONE
[2021-02-24 17:02] VITALS: BP 130/62
[2021-02-24 18:13] LABS: MEAN CORPUSCULAR HEMOGLOBIN 27.2 pg (27.0-33.0); MEAN CORPUSCULAR HGB CONC 32.3 g/dL (32.0-36.0); MEAN CORPUSCULAR VOLUME 84.1 fL (79-99); PLATELET COUNT (AUTO) 209 K/uL (130-400); RED BLOOD CELL COUNT(AUTO) 3.09 MIL/uL (4.00-5.50); RED CELL DISTRIBUTION WIDTH 13.8 % (11.0-15.5)
[2021-02-24 18:22] LABS: CREATININE 2.3 mg/dL (0.5-1.5); POTASSIUM 4.8 mmol/L (3.5-5.1)
[2021-02-24 18:27] LABS: ALBUMIN 2.5 g/dL (3.5-5.0); BILIRUBIN,TOTAL 0.4 mg/dL (0.2-1.0); TOTAL PROTEIN, SERUM 7.2 g/dL (6.0-8.3)
[2021-02-24 18:48] LABS: BAND NEUTROPHILS % (MANUAL) 3 % (0-2); EOSINOPHILS % (MANUAL) 1 % (1-6); LYMPHOCYTES % (MANUAL) 20 % (22-44); MAN.DIFF COMMENT-IMPRESSION MANUAL DIFFERENTIAL; MONOCYTES % (MANUAL) 5 % (2-9); SEGMENTED NEUTROPHILS % 71 % (40-70)
[2021-02-24] MEDS ORDERED: AZITH500IV IV (19:10)
[2021-02-24] MEDS ORDERED: ALBU8.5H8 IH (19:10)
[2021-02-24 19:59] VITALS: BP 139/48
[2021-02-24 21:28] VITALS: BP 135/52
== END 2021-02-24 21:33 | disposition home or self-care (01) ==
LOC: EDUNIT# 16:24 → EDH 16:24
DX: J40 Bronchitis, not specified as acute or chronic (principal); E87.1 Hypo-osmolality and hyponatremia; Z20.822 Contact with and (suspected) exposure to COVID-19; Z79.84 Long term (current) use of oral hypoglycemic drugs; Z79.82 Long term (current) use of aspirin; Z79.899 Other long term (current) drug therapy; Z95.1 Presence of aortocoronary bypass graft; Z90.49 Acquired absence of other specified parts of digestive tract; Z88.8 Allergy status to other drugs, medicaments and biological substances
CPT/HCPCS: 36415; 71045; 80053; 85025; 87040 ×2; 87635; 87804 ×2; 93005; 99285; C9803